=== PATIENT | female | born 1965 | race African-American/Black ===

== ENCOUNTER 2022-07-12 23:47 | Emergency (ER) | payer MEDICAID, OTHER ==
[~2022-07-12] VITALS: Ht 160 cm; Wt 60.0 kg
[2022-07-13 00:13] VITALS: BP 196/99
[2022-07-13] MEDS ORDERED: METH-653 MT (05:42)
[2022-07-13] MEDS ORDERED: IBUP-2028 MT (05:42)
== END 2022-07-13 05:56 | disposition home or self-care (01) ==
LOC: ER 23:47
DX: S39.81XA Other specified injuries of abdomen, initial encounter (principal); T14.8XXA Other injury of unspecified body region, initial encounter; I10 Essential (primary) hypertension; Z90.710 Acquired absence of both cervix and uterus; Z98.890 Other specified postprocedural states; Z88.5 Allergy status to narcotic agent; Z88.0 Allergy status to penicillin; W01.0XXA Fall on same level from slipping, tripping and stumbling without subsequent striking against object, initial encounter; Y93.89 Activity, other specified; Y92.018 Other place in single-family (private) house as the place of occurrence of the external cause
CPT/HCPCS: 71045; 73030; 73070; 73100; 73560; 99284